=== PATIENT | female | born 1995 | race African-American/Black ===

== ENCOUNTER 2021-02-09 13:17 | Inpatient (IN) | payer BC ==
[2021-02-09] MEDS ORDERED: Oxytocin/0.9 % Sodium Chloride 30 UNIT/500 ML BAG ONE (13:21)
[2021-02-09] MEDS ORDERED: Methylergonovine 0.2 MG/1 ML Amp IM PRN (13:37)
[2021-02-09] MEDS ORDERED: Water For Irrigation,Sterile 1,000 ML Container IRR PRN (13:37)
[2021-02-09] MEDS ORDERED: Sodium Chloride 0.9% 10 ML SDV IV PRN (13:37)
[2021-02-09] MEDS ORDERED: Misoprostol 200 MCG Tab PO PRN (13:37)
[2021-02-09] MEDS ORDERED: Tranexamic Acid 1,000 MG in Sodium Chloride 0.9% 100 ML IV PRN (13:37)
[2021-02-09] MEDS ORDERED: Carboprost Tromethamine 250 MCG/1 ML Amp IM PRN (13:37)
[2021-02-09] MEDS ORDERED: Lidocaine 1% 50 ML MDV INJECT PRN (13:37)
[2021-02-09] MEDS ORDERED: Butorphanol 1 MG/ML SDV IVPUSH PRN (13:37)
[2021-02-09] MEDS ORDERED: Nalbuphine 10 MG/1 ML Vial IVPUSH PRN (13:37)
[2021-02-09] MEDS ORDERED: Sodium Chloride 0.9% 2.5 ML Syringe FLUSH PRN (13:37)
[2021-02-09] MEDS ORDERED: Sodium Chloride 0.9% 10 ML Syringe FLUSH PRN (13:37)
[2021-02-09] MEDS ORDERED: Oxytocin/0.9 % Sodium Chloride 30 UNIT/500 ML BAG IV SCH (13:45)
[2021-02-09] MEDS ORDERED: Lactated Ringers 1,000 ML IV SCH (13:45)
[2021-02-09] MEDS ORDERED: Bisacodyl 10 MG Supp RECTAL PRN (14:10)
[2021-02-09] MEDS ORDERED: Benzocaine/Menthol 20%-0.5% Spray 78 GM Cannister TOP PRN (14:10)
[2021-02-09] MEDS ORDERED: Acetaminophen 500 MG Tab PO PRN (14:10)
[2021-02-09] MEDS ORDERED: Lanolin 100% Cream 7 GM Tube TOP PRN (14:10)
[2021-02-09] MEDS ORDERED: Docusate Sodium 100 MG Cap PO PRN (14:10)
[2021-02-09] MEDS ORDERED: Ibuprofen 400 MG Tab PO PRN (14:10)
[2021-02-09] MEDS ORDERED: Witch Hazel Medicated Pads 40/Jar TOP PRN (14:10)
[2021-02-09] MEDS: Acetaminophen 500 MG Tab PO PRN ×2 (16:40→22:32)
--- NOTE | 2021-02-09 17:48 | PCM.LDHP ---
L&D History of Present Illness - General Date of Service: 02/09/21 Admit Problem/Dx: Patient Status Order with Admit Dx/Problem 02/09/21 13:37 Patient Status [ADT] Routine 02/09/21 14:12 Patient Status [ADT] Routine Admission Diagnosis/Problem Admission Diagnosis/Problem Source of Information: Patient History Limitations: Reports: No Limitations - History of Present Illness Introduction:: 25yo F @ 38w5d GA presenting in labor. Contractions started at 3am and have gotten worse in frequency and intensity. Denies VB or LOF care unremarkable: O pos, Abs screen neg, RI, RPR neg, HepBsAg neg, GBS neg. Pain Score: 5 - Related Data Allergies/Adverse Reactions: Allergies Allergy/AdvReac Type Severity Reaction Status Date / Time No Known Allergies Allergy Verified 02/09/21 13:47 Past Medical History - Past Health History Medical/Surgical History: Denies Medical/Surgical History Social & Family History - Tobacco Use Tobacco Use Status *Q: Never Tobacco User Second Hand Smoke Exposure: No - Caffeine Use Caffeine Use: Reports: None - Recreational Drug Use Recreational Drug Use: No H&P Review of Systems - Review of Systems: Review Of Systems: See Below General: Reports: No Symptoms HEENT: Reports: No Symptoms Pulmonary: Reports: No Symptoms Cardiovascular: Reports: No Symptoms Genitourinary: Reports: No Symptoms Psychiatric: Reports: No Symptoms Neurological: Reports: No Symptoms L&D Exam - Exam Exam: See Below - Vital Signs Weight: 67.132 kg - OB Specific Contraction Intensity: Moderate to Strong Movement: Active Heart Tones: Present Estimated Weight: 6lbs - Delcid Score Delcid Score Cervix Position: Anterior Delcid Score Consistency: Soft Delcid Score Effacement: >80% Delcid Score Dilation: > 5 cm Delcid Score Infant's Station: +1, +2 Delcid Score Total: 13 - Exam General: Alert, Oriented Lungs: Normal Respiratory Effort Cardiovascular: Regular Rhythm Back Exam: Normal Inspection Psychiatric: Alert, Normal Affect, Normal Mood - Patient Data Lab Results Last 24 hrs: Laboratory Results - last 24 hr 02/09/21 02/09/21 02/09/21 Range/Units 13:15 13:30 13:30 WBC 10.58 (4.0-11.0) K/uL RBC 5.40 (4.30-5.90) M/uL Hgb 12.0 (12.0-16.0) g/dL Hct 38.1 (36.0-46.0) % MCV 70.6 L (80.0-98.0) fL MCH 22.2 L (27.0-32.0) pg MCHC 31.5 (31.0-37.0) g/dL RDW Std Deviation 38.6 (28.0-62.0) fl RDW Coeff of Leatha 15 (11.0-15.0) % Plt Count 199 (150-400) K/uL MPV (7.40-12.00) fL Nucleated RBC % 0.0 /100WBC Nucleated RBCs # 0 K/uL SARS-CoV-2 RNA (KD) NEGATIVE (NEGATIVE) Blood Type O POSITIVE Antibody Screen NEGATIVE Result Diagrams: 02/10/21 05:12 - Problem List (1) Term SNOMED Code(s): 99059608 ICD Code: Z34.90 - ENCNTR FOR SUPRVSN OF NORMAL , UNSP, UNSP TRIMESTER Status: Acute Current Visit: Yes Problem List Initiated/Reviewed/Updated: Yes Orders Last 24hrs: Active Orders 24 hr Category Date Time Status Patient Status [ADT] Routine ADT 02/09/21 14:12 Active Heart Tones [RC] CONTINUOUS Care 02/09/21 13:37 Active Non Stress Test [RC] PER UNIT ROUTINE Care 02/09/21 13:37 Active May Shower [RC] ASDIRECTED Care 02/09/21 13:37 Active May Shower [RC] ASDIRECTED Care 02/09/21 14:12 Active Notify Provider [RC] PRN Care 02/09/21 13:37 Active Up ad Mandy [RC] ASDIRECTED Care 02/09/21 13:37 Active Up ad Mandy [RC] ASDIRECTED Care 02/09/21 14:12 Active Vaginal Exam [RC] PRN Care 02/09/21 13:37 Active Vital Signs [RC] PER UNIT ROUTINE Care 02/09/21 13:37 Active Vital Signs [RC] PER UNIT ROUTINE Care 02/09/21 14:12 Active Regular Diet [DIET] Diet 02/09/21 Dinner Active HEMOGLOBIN/HEMATOCRIT,HH [HEME] Timed Lab 02/10/21 05:11 Ordered RPR (SYPHILIS SERO) W/ RFLX [REF] Routine Lab 02/09/21 13:30 Received Acetaminophen [Tylenol Extra Strength] Med 02/09/21 14:10 Active 1,000 mg PO Q4H PRN Acetaminophen [Tylenol Extra Strength] Med 02/09/21 14:10 Active 500 mg PO Q4H PRN Benzocaine/Menthol [Dermoplast Pain Relief 20%-0.5% Med 02/09/21 14:10 Active [place]] 78 gm TOP ASDIRECTED PRN Butorphanol [Stadol] Med 02/09/21 13:37 Active 1 mg IVPUSH Q1H PRN Carboprost Tromethamine [Hemabate DS] Med 02/09/21 13:37 Active 250 mcg IM ASDIRECTED PRN Docusate Sodium [Colace] Med 02/09/21 14:10 Active 100 mg PO BID PRN Ibuprofen [Motrin] Med 02/09/21 14:10 Active 400 mg PO Q4H PRN Ibuprofen [Motrin] Med 02/09/21 14:10 Active 800 mg PO Q6H PRN Lactated Ringers [Ringers, Lactated] 1,000 ml Med 02/09/21 13:45 Active IV ASDIRECTED Lanolin [Lansinoh HPA] Med 02/09/21 14:10 Active See Dose Instructions TOP ASDIRECTED PRN Lidocaine 1% [Xylocaine 1%] Med 02/09/21 13:37 Active 50 ml INJECT ONETIME PRN Methylergonovine [Methergine] Med 02/09/21 13:37 Active 0.2 mg IM ASDIRECTED PRN Nalbuphine [Nubain] Med 02/09/21 13:37 Active 10 mg IVPUSH Q1H PRN Oxytocin/0.9 % Sodium Chloride [Oxytocin 30 Unit/500 ML Med 02/09/21 13:45 Active -NS] 30 unit in 500 ml IV TITRATE Sodium Chloride 0.9% [Normal Saline] Med 02/09/21 13:37 Active 10 ml IV ASDIRECTED PRN Sodium Chloride 0.9% [Saline Flush] Med 02/09/21 13:37 Active 10 ml FLUSH ASDIRECTED PRN Sodium Chloride 0.9% [Saline Flush] Med 02/09/21 13:37 Active 2.5 ml FLUSH ASDIRECTED PRN Tranexamic Acid [Cyklokapron] 1,000 mg Med 02/09/21 13:37 Active Sodium Chloride 0.9% [Normal Saline] 100 ml IV ONETIME Water For Irrigation,Sterile [Sterile Water for Med 02/09/21 13:37 Active Irrigation] 1,000 ml IRR ASDIRECTED PRN bisacodyL [Dulcolax] Med 02/09/21 14:10 Active 10 mg RECTAL ONETIME PRN miSOPROStoL [Cytotec] Med 02/09/21 13:37 Active 200 mcg PO ONETIME PRN witch Nan [Tucks] Med 02/09/21 14:10 Active 1 pad TOP ASDIRECTED PRN Assess Lochia [WOMSER] Per Unit Routine Ot 02/09/21 14:12 Ordered Assess Uterine Involution [WOMSER] Per Unit Routine Oth 02/09/21 14:12 Ordered Scalp Electrode [WOMSER] Per Unit Routine Oth 02/09/21 13:37 Ordered Peripheral IV Discontinue [OM.PC] Routine Oth 02/09/21 14:12 Ordered Peripheral IV Insertion Adult [OM.PC] Routine Oth 02/09/21 13:37 Ordered Resuscitation Status Routine Resus Stat 02/09/21 13:37 Ordered Medication Orders Acetaminophen (Acetaminophen 500 Mg Tab) 500 mg PO Q4H PRN PRN Reason: Pain Acetaminophen (Acetaminophen 500 Mg Tab) 1,000 mg PO Q4H PRN PRN Reason: Pain Last Admin: 02/09/21 16:40 Dose: 1,000 mg Documented by: OVERBAR Benzocaine/Menthol (Benzocaine/Menthol 20%-0.5% [place] 78 Gm Cannister) 78 gm TOP ASDIRECTED PRN PRN Reason: Perineal Comfort Measure Bisacodyl (Bisacodyl 10 Mg Supp) 10 mg RECTAL ONETIME PRN PRN Reason: Constipation Butorphanol Tartrate (Butorphanol 1 Mg/Ml Sdv) 1 mg IVPUSH Q1H PRN PRN Reason: Pain Carboprost Tromethamine (Carboprost Tromethamine 250 Mcg/1 Ml Amp) 250 mcg IM ASDIRECTED PRN PRN Reason: Post Hemorrhage Docusate Sodium (Docusate Sodium 100 Mg Cap) 100 mg PO BID PRN PRN Reason: Constipation Emollient Ointment (Lanolin 100% Cream 7 Gm Tube) 0 gm TOP ASDIRECTED PRN PRN Reason: Sore Nipples Lactated Ringer's (Ringers, Lactated) 1,000 mls @ 150 mls/hr IV ASDIRECTED [facility] Last Admin: 02/09/21 13:17 Dose: 999 mls/hr Documented by: OVERBAR Oxytocin/Sodium Chloride (Oxytocin 30 Unit/500 Ml-Ns) 30 unit in 500 mls @ 500 mls/hr IV TITRATE [facility] Last Admin: 02/09/21 13:51 Dose: 500 mls/hr Documented by: OVERBAR Tranexamic Acid 1,000 mg/ (Sodium Chloride) 110 mls @ 660 mls/hr IV ONETIME PRN PRN Reason: Bleeding Ibuprofen (Ibuprofen 400 Mg Tab) 400 mg PO Q4H PRN PRN Reason: Pain Ibuprofen (Ibuprofen 800 Mg Tab) 800 mg PO Q6H PRN PRN Reason: Pain Lidocaine HCl (Lidocaine 1% 50 Ml Mdv) 50 ml INJECT ONETIME PRN PRN Reason: Laceration repair Methylergonovine Maleate (Methylergonovine 0.2 Mg/1 Ml Amp) 0.2 mg IM ASDIRECTED PRN PRN Reason: Post Hemorrhage Misoprostol (Misoprostol 200 Mcg Tab) 200 mcg PO ONETIME PRN PRN Reason: Post Hemorrhage Nalbuphine HCl (Nalbuphine 10 Mg/1 Ml Vial) 10 mg IVPUSH Q1H PRN PRN Reason: Pain (severe 7-10) Sodium Chloride (Sodium Chloride 0.9% 10 Ml Syringe) 10 ml FLUSH ASDIRECTED PRN PRN Reason: Keep Vein Open Sodium Chloride (Sodium Chloride 0.9% 2.5 Ml Syringe) 2.5 ml FLUSH ASDIRECTED PRN PRN Reason: Keep Vein Open Sodium Chloride (Sodium Chloride 0.9% 10 Ml Sdv) 10 ml IV ASDIRECTED PRN PRN Reason: IV Use Sterile Water (Water For Irrigation,Sterile 1,000 Ml Container) 1,000 ml IRR ASDIRECTED PRN PRN Reason: delivery Witch Nan (Witch Nan Medicated Pads 40/Jar) 1 pad TOP ASDIRECTED PRN PRN Reason: comfort care Assessment/Plan Comment:: Patient will be admitted to L&D. Routine admission labs. Expectant management.
--- NOTE | 2021-02-09 17:49 | PCM.DEL ---
L & D Note - General Info Date of Service: 02/09/21 Mother's Due Date: 02/18/21 - Delivery Note Labor: Spontaneous Delivery Outcome: Livebirth Infant Delivery Method: Spontaneous Vaginal Delivery-Single Nuchal Cord: None Anesthesia Type: None Amniotic Fluid Description: Clear Episiotomy Type: None Laceration: None Placenta: Intact Cord: 3 Vessels Estimated Blood Loss: 100 Resuscitation Needed: No [place]: Stimulated, Warmed Score 1 min: 8 Score 5 min: 9 Delivery Comments (Free Text/Narrative):: 25yo G2 now P2002 S/P uncomplicated care ucomplicated. Normal spontaneous vaginal delivery, of live female , position over intact perineum without epidural anesthesia. terminal meconium but no nuchal cord. Spontaneous delivery of placenta with 3-vessel cord. No laceration, minimal blood loss. All sponges and instrument counts correct at the end of the procedure. Delivery details: Female infant Weight: 6'14" : 8/9 EBL 100cc - General Info Date of Service: 02/09/21 Admission Dx/Problem (Free Text): Patient Status Order with Admit Dx/Problem 02/09/21 13:37 Patient Status [ADT] Routine 02/09/21 14:12 Patient Status [ADT] Routine Admission Diagnosis/Problem Admission Diagnosis/Problem Subjective Update: 25yo G2 now P2 s/p uncomplicated . Minimal blood loss. Mom and baby are doing well Functional Status: Reports: Pain Controlled - Review of Systems General: Reports: No Symptoms HEENT: Reports: No Symptoms Pulmonary: Reports: No Symptoms Cardiovascular: Reports: No Symptoms Gastrointestinal: Reports: No Symptoms Genitourinary: Reports: No Symptoms Musculoskeletal: Reports: No Symptoms Skin: Reports: No Symptoms Neurological: Reports: No Symptoms Psychiatric: Reports: No Symptoms - Patient Data Weight - Most Recent: 67.132 kg Lab Results Last 24 Hours: Laboratory Results - last 24 hr 02/09/21 02/09/21 02/09/21 Range/Units 13:15 13:30 13:30 WBC 10.58 (4.0-11.0) K/uL RBC 5.40 (4.30-5.90) M/uL Hgb 12.0 (12.0-16.0) g/dL Hct 38.1 (36.0-46.0) % MCV 70.6 L (80.0-98.0) fL MCH 22.2 L (27.0-32.0) pg MCHC 31.5 (31.0-37.0) g/dL RDW Std Deviation 38.6 (28.0-62.0) fl RDW Coeff of [place] 15 (11.0-15.0) % Plt Count 199 (150-400) K/uL MPV (7.40-12.00) fL Nucleated RBC % 0.0 /100WBC Nucleated RBCs # 0 K/uL SARS-CoV-2 RNA (KD) NEGATIVE (NEGATIVE) Blood Type O POSITIVE Antibody Screen NEGATIVE Med Orders - Current: Current Medications Acetaminophen (Acetaminophen 500 Mg Tab) 500 mg PO Q4H PRN PRN Reason: Pain Acetaminophen (Acetaminophen 500 Mg Tab) 1,000 mg PO Q4H PRN PRN Reason: Pain Last Admin: 02/09/21 16:40 Dose: 1,000 mg Documented by: Benzocaine/Menthol (Benzocaine/Menthol 20%-0.5% [place] 78 Gm Cannister) 78 gm TOP ASDIRECTED PRN PRN Reason: Perineal Comfort Measure Bisacodyl (Bisacodyl 10 Mg Supp) 10 mg RECTAL ONETIME PRN PRN Reason: Constipation Butorphanol Tartrate (Butorphanol 1 Mg/Ml Sdv) 1 mg IVPUSH Q1H PRN PRN Reason: Pain Carboprost Tromethamine (Carboprost Tromethamine 250 Mcg/1 Ml Amp) 250 mcg IM ASDIRECTED PRN PRN Reason: Post Hemorrhage Docusate Sodium (Docusate Sodium 100 Mg Cap) 100 mg PO BID PRN PRN Reason: Constipation Emollient Ointment (Lanolin 100% Cream 7 Gm Tube) 0 gm TOP ASDIRECTED PRN PRN Reason: Sore Nipples Lactated Ringer's (Ringers, Lactated) 1,000 mls @ 150 mls/hr IV ASDIRECTED [facility] Last Admin: 02/09/21 13:17 Dose: 999 mls/hr Documented by: Oxytocin/Sodium Chloride (Oxytocin 30 Unit/500 Ml-Ns) 30 unit in 500 mls @ 500 mls/hr IV TITRATE [facility] Last Admin: 02/09/21 13:51 Dose: 500 mls/hr Documented by: Tranexamic Acid 1,000 mg/ (Sodium Chloride) 110 mls @ 660 mls/hr IV ONETIME PRN PRN Reason: Bleeding Ibuprofen (Ibuprofen 400 Mg Tab) 400 mg PO Q4H PRN PRN Reason: Pain Ibuprofen (Ibuprofen 800 Mg Tab) 800 mg PO Q6H PRN PRN Reason: Pain Lidocaine HCl (Lidocaine 1% 50 Ml Mdv) 50 ml INJECT ONETIME PRN PRN Reason: Laceration repair Methylergonovine Maleate (Methylergonovine 0.2 Mg/1 Ml Amp) 0.2 mg IM ASDIRECTED PRN PRN Reason: Post Hemorrhage Misoprostol (Misoprostol 200 Mcg Tab) 200 mcg PO ONETIME PRN PRN Reason: Post Hemorrhage Nalbuphine HCl (Nalbuphine 10 Mg/1 Ml Vial) 10 mg IVPUSH Q1H PRN PRN Reason: Pain (severe 7-10) Sodium Chloride (Sodium Chloride 0.9% 10 Ml Syringe) 10 ml FLUSH ASDIRECTED PRN PRN Reason: Keep Vein Open Sodium Chloride (Sodium Chloride 0.9% 2.5 Ml Syringe) 2.5 ml FLUSH ASDIRECTED PRN PRN Reason: Keep Vein Open Sodium Chloride (Sodium Chloride 0.9% 10 Ml Sdv) 10 ml IV ASDIRECTED PRN PRN Reason: IV Use Sterile Water (Water For Irrigation,Sterile 1,000 Ml Container) 1,000 ml IRR ASDIRECTED PRN PRN Reason: delivery Witch Nan (Witch Nan Medicated Pads 40/Jar) 1 pad TOP ASDIRECTED PRN PRN Reason: comfort care Discontinued Medications Oxytocin/Sodium Chloride (Oxytocin 30 Unit/500 Ml-Ns) Confirm Administered Dose 30 unit in 500 mls @ as directed .ROUTE .STK-MED ONE Stop: 02/09/21 13:22 - Exam General: Alert, Oriented Lungs: Normal Respiratory Effort Cardiovascular: Regular Rate GI/Abdominal Exam: Soft, Non-Tender Back Exam: Normal Inspection Extremities: Normal Inspection Neurological: No New Focal Deficit Psy/Mental Status: Alert, Normal Affect, Normal Mood - Problem List & Annotations (1) Term SNOMED Code(s): 11353105 Code(s): Z34.90 - ENCNTR FOR SUPRVSN OF NORMAL , UNSP, UNSP TRIMESTER Status: Acute Current Visit: Yes - Problem List Review Problem List Initiated/Reviewed/Updated: Yes - My Orders Last 24 Hours: My Active Orders 02/09/21 13:30 RPR (SYPHILIS SERO) W/ RFLX [REF] Routine 02/09/21 13:37 Heart Tones [RC] CONTINUOUS Non Stress Test [RC] PER UNIT ROUTINE May Shower [RC] ASDIRECTED Notify Provider [RC] PRN Up ad Mandy [RC] ASDIRECTED Vaginal Exam [RC] PRN Vital Signs [RC] PER UNIT ROUTINE Butorphanol [Stadol] 1 mg IVPUSH Q1H PRN Carboprost Tromethamine [Hemabate DS] 250 mcg IM ASDIRECTED PRN Lidocaine 1% [Xylocaine 1%] 50 ml INJECT ONETIME PRN Methylergonovine [Methergine] 0.2 mg IM ASDIRECTED PRN Nalbuphine [Nubain] 10 mg IVPUSH Q1H PRN Sodium Chloride 0.9% [Normal Saline] 10 ml IV ASDIRECTED PRN Sodium Chloride 0.9% [Saline Flush] 10 ml FLUSH ASDIRECTED PRN Sodium Chloride 0.9% [Saline Flush] 2.5 ml FLUSH ASDIRECTED PRN Tranexamic Acid [Cyklokapron] 1,000 mg Sodium Chloride 0.9% [Normal Saline] 100 ml IV ONETIME Water For Irrigation,Sterile [Sterile Water for Irrigation] 1,000 ml IRR ASDIRECTED PRN miSOPROStoL [Cytotec] 200 mcg PO ONETIME PRN Scalp Electrode [WOMSER] Per Unit Routine Peripheral IV Insertion Adult [OM.PC] Routine Resuscitation Status Routine 02/09/21 13:45 Lactated Ringers [Ringers, Lactated] 1,000 ml IV ASDIRECTED Oxytocin/0.9 % Sodium Chloride [Oxytocin 30 Unit/500 ML-NS] 30 unit in 500 ml IV TITRATE 02/09/21 14:10 Acetaminophen [Tylenol Extra Strength] 1,000 mg PO Q4H PRN Acetaminophen [Tylenol Extra Strength] 500 mg PO Q4H PRN Benzocaine/Menthol [Dermoplast Pain Relief 20%-0.5% [place]] 78 gm TOP ASDIRECTED PRN Docusate Sodium [Colace] 100 mg PO BID PRN Ibuprofen [Motrin] 400 mg PO Q4H PRN Ibuprofen [Motrin] 800 mg PO Q6H PRN Lanolin [Lansinoh HPA] See Dose Instructions TOP ASDIRECTED PRN bisacodyL [Dulcolax] 10 mg RECTAL ONETIME PRN witch Nan [Tucks] 1 pad TOP ASDIRECTED PRN 02/09/21 14:12 Patient Status [ADT] Routine May Shower [RC] ASDIRECTED Up ad Mandy [RC] ASDIRECTED Vital Signs [RC] PER UNIT ROUTINE Assess Lochia [WOMSER] Per Unit Routine Assess Uterine Involution [WOMSER] Per Unit Routine Peripheral IV Discontinue [OM.PC] Routine 02/09/21 Dinner Regular Diet [DIET] 02/10/21 05:11 HEMOGLOBIN/HEMATOCRIT,HH [HEME] Timed - Assessment Assessment:: Uncomplicated . Baby by mother's side, both doing well. - Plan Plan:: Admit to . Routine care
[2021-02-10] MEDS: Ibuprofen 800 MG Tab PO PRN ×2 (05:35→19:25)
--- NOTE | 2021-02-10 18:06 | PCM.PNPP ---
- General Info Date of Service: 02/10/21 Admission Dx/Problem (Free Text): Patient Status Order with Admit Dx/Problem 02/09/21 13:37 Patient Status [ADT] Routine 02/09/21 14:12 Patient Status [ADT] Routine Admission Diagnosis/Problem Admission Diagnosis/Problem Subjective Update: 25yo G2 now P2 s/p uncomplicated . Minimal blood loss. Mom is doing well. Baby under light treatment for elevated bili Functional Status: Reports: Pain Controlled - Review of Systems General: Reports: No Symptoms HEENT: Reports: No Symptoms Pulmonary: Reports: No Symptoms Cardiovascular: Reports: No Symptoms Gastrointestinal: Reports: No Symptoms Genitourinary: Reports: No Symptoms Musculoskeletal: Reports: No Symptoms Skin: Reports: No Symptoms Neurological: Reports: No Symptoms Psychiatric: Reports: No Symptoms - General Info Date of Service: 02/10/21 - Patient Data Vital Signs - Most Recent: Last Vital Signs Temp 98.4 F 02/10/21 16:53 Pulse 91 02/10/21 16:53 Resp 16 02/10/21 16:53 BP 116/80 02/10/21 16:53 Pulse Ox 100 02/10/21 16:53 Weight - Most Recent: 67.132 kg Lab Results - Last 24 Hours: Laboratory Results - last 24 hr 02/10/21 Range/Units 05:12 Hgb 10.6 L (12.0-16.0) g/dL Hct 33.9 L (36.0-46.0) % Med Orders - Current: Current Medications Acetaminophen (Acetaminophen 500 Mg Tab) 500 mg PO Q4H PRN PRN Reason: Pain Acetaminophen (Acetaminophen 500 Mg Tab) 1,000 mg PO Q4H PRN PRN Reason: Pain Last Admin: 02/09/21 22:32 Dose: 1,000 mg Documented by: Benzocaine/Menthol (Benzocaine/Menthol 20%-0.5% [place] 78 Gm Cannister) 78 gm TOP ASDIRECTED PRN PRN Reason: Perineal Comfort Measure Bisacodyl (Bisacodyl 10 Mg Supp) 10 mg RECTAL ONETIME PRN PRN Reason: Constipation Butorphanol Tartrate (Butorphanol 1 Mg/Ml Sdv) 1 mg IVPUSH Q1H PRN PRN Reason: Pain Carboprost Tromethamine (Carboprost Tromethamine 250 Mcg/1 Ml Amp) 250 mcg IM ASDIRECTED PRN PRN Reason: Post Hemorrhage Docusate Sodium (Docusate Sodium 100 Mg Cap) 100 mg PO BID PRN PRN Reason: Constipation Emollient Ointment (Lanolin 100% Cream 7 Gm Tube) 0 gm TOP ASDIRECTED PRN PRN Reason: Sore Nipples Lactated Ringer's (Ringers, Lactated) 1,000 mls @ 150 mls/hr IV ASDIRECTED [facility] Last Admin: 02/09/21 13:17 Dose: 999 mls/hr Documented by: Oxytocin/Sodium Chloride (Oxytocin 30 Unit/500 Ml-Ns) 30 unit in 500 mls @ 500 mls/hr IV TITRATE [facility] Last Admin: 02/09/21 13:51 Dose: 500 mls/hr Documented by: Tranexamic Acid 1,000 mg/ (Sodium Chloride) 110 mls @ 660 mls/hr IV ONETIME PRN PRN Reason: Bleeding Ibuprofen (Ibuprofen 400 Mg Tab) 400 mg PO Q4H PRN PRN Reason: Pain Ibuprofen (Ibuprofen 800 Mg Tab) 800 mg PO Q6H PRN PRN Reason: Pain Last Admin: 02/10/21 05:35 Dose: 800 mg Documented by: Lidocaine HCl (Lidocaine 1% 50 Ml Mdv) 50 ml INJECT ONETIME PRN PRN Reason: Laceration repair Methylergonovine Maleate (Methylergonovine 0.2 Mg/1 Ml Amp) 0.2 mg IM ASDIRECTED PRN PRN Reason: Post Hemorrhage Misoprostol (Misoprostol 200 Mcg Tab) 200 mcg PO ONETIME PRN PRN Reason: Post Hemorrhage Nalbuphine HCl (Nalbuphine 10 Mg/1 Ml Vial) 10 mg IVPUSH Q1H PRN PRN Reason: Pain (severe 7-10) Sodium Chloride (Sodium Chloride 0.9% 10 Ml Syringe) 10 ml FLUSH ASDIRECTED PRN PRN Reason: Keep Vein Open Sodium Chloride (Sodium Chloride 0.9% 2.5 Ml Syringe) 2.5 ml FLUSH ASDIRECTED PRN PRN Reason: Keep Vein Open Sodium Chloride (Sodium Chloride 0.9% 10 Ml Sdv) 10 ml IV ASDIRECTED PRN PRN Reason: IV Use Sterile Water (Water For Irrigation,Sterile 1,000 Ml Container) 1,000 ml IRR ASDIRECTED PRN PRN Reason: delivery Witch Nan (Witch Nan Medicated Pads 40/Jar) 1 pad TOP ASDIRECTED PRN PRN Reason: comfort care Discontinued Medications Oxytocin/Sodium Chloride (Oxytocin 30 Unit/500 Ml-Ns) Confirm Administered Dose 30 unit in 500 mls @ as directed .ROUTE .STK-MED ONE Stop: 02/09/21 13:22 Last Admin: 02/10/21 07:18 Dose: Not Given Documented by: - Infant Interaction Infant Disposition, : to Nursery Interaction: To Nursery to Visit Support Person: - Recovery Exam Fundal Tone: Firm Fundal Level: 2 Fingerbreadths Below Umbilicus Fundal Placement: Midline Lochia Amount: Scant Lochia Color: Rubra/Red Perineum Description: Intact, Minimal Bruising/Swelling Episiotomy/Laceration: None Bladder Status: Voiding Urinary Elimination: Voided - Exam General: Alert, Oriented Lungs: Normal Respiratory Effort GI/Abdominal Exam: Soft, Non-Tender Psy/Mental Status: Alert, Normal Affect, Normal Mood - Problem List & Annotations (1) Term SNOMED Code(s): 37715706 Code(s): Z34.90 - ENCNTR FOR SUPRVSN OF NORMAL , UNSP, UNSP TRIMESTER Status: Acute Current Visit: Yes - Problem List Review Problem List Initiated/Reviewed/Updated: Yes - Assessment Assessment:: Uncomplicated . Mom doing well. Baby receiving light therapy for elevated bili - Plan Plan:: Routine care
--- NOTE | 2021-02-10 21:59 | US ---
INDICATION: Pelvic pain, status post vaginal delivery yesterday TECHNIQUE: Ultrasound pelvis transabdominal. Real-time sonographic images with spectral and color Doppler imaging of the ovaries were obtained. COMPARISON: None FINDINGS: Uterus: 15.8 x 8.5 x 8.9 cm. Normal echotexture of the myometrium. No masses. Endometrium: Transvaginal imaging was performed to better evaluate the endometrium. 1.9 cm in maximum thickness in the lower uterine segment. The endometrium is heterogeneous in this location. Right ovary: 2.0 x 2.8 x 1.4 cm. No ovarian or adnexal masses. Blood flow is seen in the right ovary. Left ovary: 2.6 x 3.3 x 1.8 cm. No ovarian or adnexal masses. Blood flow seen in the left ovary. Cul-de-sac: No significant free fluid. IMPRESSION: Heterogeneous, thickened endometrium in the lower uterine segment. Although this may be due to recent state, retained products of conception cannot be entirely excluded. Recommend gynecology consultation. Enlarged uterus consistent with state. Dictated by Cindy Golden MD @ Feb 10 2021 9:53PM Signed by Dr. Cindy Golden @ Feb 10 2021 9:57PM
[2021-02-10] MEDS ORDERED: Acetaminophen/oxyCODONE 325-5 MG Tab PO PRN (22:17)
--- NOTE | 2021-02-11 17:01 | PCM.DCSUM1 ---
Discharge Summary - Hospital Course Free Text/Narrative:: 25yo G2 now P2 s/p uncomplicated at 38w5d. Patient presented in labor and found to be 8cm dilated. She SROM and delivered shortly after she arrived to L&D. Baby girl apgars 8/9. Baby was jaundiced and required UV light therapy. course was otherwise unremarkable. Diagnosis: Stroke: No - Discharge Data Discharge Date: 02/11/21 Discharge Disposition: Home, Self-Care 01 Condition: Good - Referral to Home Health Primary Care Physician: PCP None - Discharge Diagnosis/Problem(s) (1) Term SNOMED Code(s): 08930627 ICD Code: Z34.90 - ENCNTR FOR SUPRVSN OF NORMAL , UNSP, UNSP TRIMESTER Status: Acute - Patient Instructions Diet: Regular Diet as Tolerated Activity: As Tolerated - Discharge Plan *PRESCRIPTION DRUG MONITORING PROGRAM REVIEWED*: Not Applicable *COPY OF PRESCRIPTION DRUG MONITORING REPORT IN PATIENT YON: Not Applicable Patient Handouts: Baby Blues, Care After Vaginal Delivery Referrals: Ritu Caruso MD [Physician] - 03/24/21 8:30 am - Discharge Summary/Plan Comment DC Time >30 min.: Yes - General Info Date of Service: 02/11/21 Admission Dx/Problem (Free Text: Patient Status Order with Admit Dx/Problem 02/09/21 13:37 Patient Status [ADT] Routine 02/09/21 14:12 Patient Status [ADT] Routine Admission Diagnosis/Problem Admission Diagnosis/Problem Subjective Update: 25yo G2 now P2 s/p uncomplicated . Minimal blood loss. Mom is doing well. Baby with elevated bili and was treated with UV light Functional Status: Reports: Pain Controlled - Review of Systems General: Reports: No Symptoms HEENT: Reports: No Symptoms Pulmonary: Reports: No Symptoms Cardiovascular: Reports: No Symptoms Gastrointestinal: Reports: No Symptoms Genitourinary: Reports: No Symptoms Musculoskeletal: Reports: No Symptoms Skin: Reports: No Symptoms - Patient Data Vitals - Most Recent: Last Vital Signs Temp 97.8 F 02/11/21 05:10 Pulse 68 02/11/21 05:10 Resp 16 02/11/21 05:10 BP 128/76 02/11/21 05:10 Pulse Ox 97 02/11/21 05:10 Weight - Most Recent: 67.132 kg Lab Results - Last 24 hrs: Laboratory Results - last 24 hr 02/09/21 Range/Units 13:30 RPR Non-Reac (Non-Reac) Med Orders - Current: Current Medications Discontinued Medications Acetaminophen (Acetaminophen 500 Mg Tab) 500 mg PO Q4H PRN PRN Reason: Pain Acetaminophen (Acetaminophen 500 Mg Tab) 1,000 mg PO Q4H PRN PRN Reason: Pain Last Admin: 02/09/21 22:32 Dose: 1,000 mg Documented by: Benzocaine/Menthol (Benzocaine/Menthol 20%-0.5% [place] 78 Gm Cannister) 78 gm TOP ASDIRECTED PRN PRN Reason: Perineal Comfort Measure Bisacodyl (Bisacodyl 10 Mg Supp) 10 mg RECTAL ONETIME PRN PRN Reason: Constipation Butorphanol Tartrate (Butorphanol 1 Mg/Ml Sdv) 1 mg IVPUSH Q1H PRN PRN Reason: Pain Carboprost Tromethamine (Carboprost Tromethamine 250 Mcg/1 Ml Amp) 250 mcg IM ASDIRECTED PRN PRN Reason: Post Hemorrhage Docusate Sodium (Docusate Sodium 100 Mg Cap) 100 mg PO BID PRN PRN Reason: Constipation Emollient Ointment (Lanolin 100% Cream 7 Gm Tube) 0 gm TOP ASDIRECTED PRN PRN Reason: Sore Nipples Last Admin: 02/11/21 08:42 Dose: 7 gm Documented by: Oxytocin/Sodium Chloride (Oxytocin 30 Unit/500 Ml-Ns) Confirm Administered Dose 30 unit in 500 mls @ as directed .ROUTE .STK-MED ONE Stop: 02/09/21 13:22 Last Admin: 02/10/21 07:18 Dose: Not Given Documented by: Lactated Ringer's (Ringers, Lactated) 1,000 mls @ 150 mls/hr IV ASDIRECTED MICHAEL Last Admin: 02/09/21 13:17 Dose: 999 mls/hr Documented by: Oxytocin/Sodium Chloride (Oxytocin 30 Unit/500 Ml-Ns) 30 unit in 500 mls @ 500 mls/hr IV TITRATE MICHAEL Last Admin: 02/09/21 13:51 Dose: 500 mls/hr Documented by: Tranexamic Acid 1,000 mg/ (Sodium Chloride) 110 mls @ 660 mls/hr IV ONETIME PRN PRN Reason: Bleeding Ibuprofen (Ibuprofen 400 Mg Tab) 400 mg PO Q4H PRN PRN Reason: Pain Ibuprofen (Ibuprofen 800 Mg Tab) 800 mg PO Q6H PRN PRN Reason: Pain Last Admin: 02/10/21 19:25 Dose: 800 mg Documented by: Lidocaine HCl (Lidocaine 1% 50 Ml Mdv) 50 ml INJECT ONETIME PRN PRN Reason: Laceration repair Methylergonovine Maleate (Methylergonovine 0.2 Mg/1 Ml Amp) 0.2 mg IM ASDIRECTED PRN PRN Reason: Post Hemorrhage Misoprostol (Misoprostol 200 Mcg Tab) 200 mcg PO ONETIME PRN PRN Reason: Post Hemorrhage Nalbuphine HCl (Nalbuphine 10 Mg/1 Ml Vial) 10 mg IVPUSH Q1H PRN PRN Reason: Pain (severe 7-10) Oxycodone/Acetaminophen (Acetaminophen/Oxycodone 325-5 Mg Tab) 2 tab PO ONETIME PRN PRN Reason: pain Last Admin: 02/11/21 05:43 Dose: 1 tab Documented by: Sodium Chloride (Sodium Chloride 0.9% 10 Ml Syringe) 10 ml FLUSH ASDIRECTED PRN PRN Reason: Keep Vein Open Sodium Chloride (Sodium Chloride 0.9% 2.5 Ml Syringe) 2.5 ml FLUSH ASDIRECTED PRN PRN Reason: Keep Vein Open Sodium Chloride (Sodium Chloride 0.9% 10 Ml Sdv) 10 ml IV ASDIRECTED PRN PRN Reason: IV Use Sterile Water (Water For Irrigation,Sterile 1,000 Ml Container) 1,000 ml IRR ASDIRECTED PRN PRN Reason: delivery Witch Nan (Witch Nan Medicated Pads 40/Jar) 1 pad TOP ASDIRECTED PRN PRN Reason: comfort care - Exam General: Reports: Alert, Oriented Lungs: Reports: Normal Respiratory Effort Cardiovascular: Reports: Regular Rate GI/Abdominal Exam: Soft, Non-Tender Extremities: Normal Inspection Psy/Mental Status: Reports: Alert, Normal Affect
== END 2021-02-11 13:20 | disposition home or self-care (01) | DRG 560 ==
LOC: MW.OBCHECK 13:17 → MW.OB 13:37 → OBSVTOIN 13:51 → MW.OB 18:40
PROVIDERS: ADMIT Obstetrics & Gynecology Obstetrics; ATTEND Obstetrics & Gynecology Obstetrics
PROC: 10E0XZZ Delivery of Products of Conception, External Approach (ICD-10-PCS; principal; 2021-02-09)
DX: O62.3 Precipitate labor (principal); O77.0 Labor and delivery complicated by meconium in amniotic fluid; Z3A.38 38 weeks gestation of pregnancy; Z37.0 Single live birth; Z20.822 Contact with and (suspected) exposure to COVID-19
CPT/HCPCS: 36415; 59025; 59409; 76857; 76857-26; 85014; 85018; 85027; 86592; 86850; 86900; 86901; A9270-GY; J2590; J7120; U0002

== ENCOUNTER 2021-08-12 14:08 | Emergency (ER) | payer OTHER, BC ==
--- NOTE | 2021-08-12 15:52 | EDM.PDOC ---
ED HPI GENERAL MEDICAL PROBLEM - General Chief Complaint: Lower Extremity Injury/Pain Stated Complaint: WORKMANS COMP/1ST REPORT OF INJURY Time Seen by Provider: 08/12/21 15:37 - History of Present Illness INITIAL COMMENTS - FREE TEXT/NARRATIVE: History of present illness: [] The patient twisted her knee yesterday and it gave out first it locked and she fell. She has severe pain since. It is painful to walk on it. Is painful to move it. The patient has no other injury. She had no loss of consciousness. Review of systems: As per history of present illness and below otherwise all systems reviewed and negative. Past medical history: As per history of present illness and as reviewed below otherwise noncontributory. Surgical history: As per history of present illness and as reviewed below otherwise noncontributo ry. Social history: No reported history of drug or alcohol abuse. Family history: As per history of present illness and as reviewed below otherwise noncontributory. Physical exam: Constitutional - well developed, well-nourished and in no acute distress HEENT - normocephalic, no evidence of trauma - external nose and mouth normal - no mass in neck and no JVD - mucosae moist EYES - full EOM, PERRL, no icterus - no evidence of inflammation, injection, or drainage Respiratory - no respiratory distress, equal bilateral expansion, lungs clear to auscultation and no abnormal lung sounds Musculoskeletal tenderness lateral and medial anterior knee on the right. After x-ray the varus and valgus stress as well as AP drawer signs were negative for instability. No gross deformity of long bones or joints - no tenderness, swelling or edema Neurologic - Alert and oriented times four - CN II-XII grossly intact - motor sensory and coordination symmetrically normal Psychiatric - appropriate mood and affect with normal thought content Hematologic - No petechiae or purpura - mucosa appropriate color and sclera not pale - normal nail bed color and refill Integument - no rash or evidence of trauma - normal turgor Diagnostics: [] Therapeutics: [] Impression: [] Plan: [] Definitive disposition and diagnosis as appropriate pending reevaluation and review of above. Right Knee Pain Score (Numeric/FACES): 8 - Related Data Allergies Allergy/AdvReac Type Severity Reaction Status Date / Time No Known Allergies Allergy Verified 08/12/21 14:41 Home Meds: Home Meds . [No Known Home Meds] 08/12/21 [History] Past Medical History - Past Health History Medical/Surgical History: Denies Medical/Surgical History - Infectious Disease History Infectious Disease History: Reports: None Social & Family History - Family History Family Medical History: No Pertinent Family History - Tobacco Use Tobacco Use Status *Q: Never Tobacco User - Caffeine Use Caffeine Use: Reports: None - Recreational Drug Use Recreational Drug Use: No Review of Systems - Review of Systems Review Of Systems: Comprehensive ROS is negative, except as noted in HPI. ED EXAM, GENERAL - Physical Exam Exam: See Below Free Text/Narrative:: My physical exam is in the HPI Course - Vital Signs Text/Narrative:: Distal neurovascular integrity verified after placement of the immobilizer Last Recorded V/S: Last Vital Signs Temp 36.8 C 08/12/21 14:42 Pulse 68 08/12/21 14:42 Resp 17 08/12/21 14:42 BP 117/72 08/12/21 14:42 Pulse Ox 100 08/12/21 14:42 - Orders/Labs/Meds Orders: Active Orders 24 hr Category Date Time Status Knee 3V Rt [CR] Stat Exams 08/12/21 14:56 Taken DME for Discharge [COMM] Stat Oth 08/12/21 15:50 Ordered Departure - Departure Time of Disposition: 15:58 Disposition: Home, Self-Care 01 Condition: Good Clinical Impression: Right knee sprain - Discharge Information Referrals: Ritu Caruso MD [Primary Care Provider] - Forms: ED Department Discharge Additional Instructions: Rest ice elevate. Should be back to full use within 2 to 3 days or follow-up in the orthopedic clinic [facility] [address], [address] [place] [address] The following information is given to patients seen in the emergency department who are being discharged to home. This information is to outline your options for follow-up care. We provide all patients seen in our emergency department with a follow-up referral. The need for follow-up, as well as the timing and circumstances, are variable depending upon the specifics of your emergency department visit. If you don't have a primary care physician on staff, we will provide you with a referral. We always advise you to contact your personal physician following an emergency department visit to inform them of the circumstance of the visit and for follow-up with them and/or the need for any referrals to a consulting specialist. The emergency department will also refer you to a specialist when appropriate. This referral assures that you have the opportunity for follow-up care with a specialist. All of these measure are taken in an effort to provide you with optimal care, which includes your follow-up. Under all circumstances we always encourage you to contact your private physician who remains a resource for coordinating your care. When calling for follow-up care, please make the office aware that this follow-up is from your recent emergency room visit. If for any reason you are refused follow-up, please contact the [facility] Emergency Department at and asked to speak to the emergency department charge nurse. Sepsis Event Note (ED) - Focused Exam Vital Signs: Vital Signs Temp Pulse Resp BP Pulse Ox 08/12/21 14:42 36.8 C 68 17 117/72 100 - My Orders Last 24 Hours: My Active Orders 08/12/21 14:56 Knee 3V Rt [CR] Stat 08/12/21 15:50 DME for Discharge [COMM] Stat - Assessment/Plan Last 24 Hours: My Active Orders 08/12/21 14:56 Knee 3V Rt [CR] Stat 08/12/21 15:50 DME for Discharge [COMM] Stat
--- NOTE | 2021-08-12 16:14 | CR ---
INDICATION: Pain after injury. COMPARISON: None available. TECHNIQUE: The right knee was examined during weight-bearing with bilateral AP, lateral, and sunrise views for a total of three views. FINDINGS: There is no sign of fracture or dislocation. The medial and lateral compartments are normal in height. There is a mild suprapatellar joint effusion. No soft tissue abnormality is seen. The AP view of the left knee included on today study is unremarkable. IMPRESSION: No sign of acute osseous injury. Mild suprapatellar joint effusion. Dictated by Jimmy Bangura MD @ 08/12/2021 4:12:33 PM (Electronically Signed)
== END 2021-08-12 16:43 | disposition home or self-care (01) ==
LOC: MW.ED 14:08
DX: S83.91XA Sprain of unspecified site of right knee, initial encounter (principal); X50.1XXA Overexertion from prolonged static or awkward postures, initial encounter
CPT/HCPCS: 73562-26-RT; 73562-RT; 99283-25

== ENCOUNTER 2025-01-08 17:05 | Emergency (ER) | payer BC ==
[2025-01-08 18:29] LABS: BASOPHILS ABSOLUTE AUTO 0.03 K/uL (0.00-0.20); BASOPHILS PERCENT AUTO 0.4 % (0.0-1.0); EOSINOPHILS ABSOLUTE AUTO 0.08 K/uL (0.00-0.45); EOSINOPHILS PERCENT AUTO 1.1 % (0.0-6.0); HEMATOCRIT 38.5 % (37.0-47.0); HEMOGLOBIN 11.9 g/dL (12.0-16.0); IMMATURE GRAN ABSOLUTE AUTO 0.02 K/uL (0.00-0.05); IMMATURE GRAN PERCENT AUTO 0.3 % (0.0-0.4); LYMPHOCYTES ABSOLUTE AUTO 2.65 K/uL (1.00-4.80); MEAN CORPUSCULAR HEMOGLOBIN 22.1 pg (28.0-32.0); MEAN CORPUSCULAR HGB CONC 30.9 g/dL (32.0-36.0); MEAN CORPUSCULAR VOLUME 71.4 fL (83.0-99.0); MONOCYTES ABSOLUTE AUTO 0.51 K/uL (0.00-0.80); MONOCYTES PERCENT AUTO 7.3 % (0.0-8.0); NEUTROPHILS ABSOLUTE AUTO 3.68 K/uL (1.80-7.70); NEUTROPHILS PERCENT AUTO 52.9 % (41.0-71.0); PLATELET COUNT,PLT 265 K/uL (150-400); RED BLOOD CELL COUNT 5.39 M/uL (4.10-5.30); WHITE BLOOD CELL COUNT,WBC 6.97 K/uL (3.9-11.3)
[2025-01-08 19:07] LABS: A/G RATIO 1.1 (0.9-1.6); ALBUMIN 4.2 g/dL (3.4-5.0); BILIRUBIN TOTAL 1.1 mg/dL (0.2-1.0); CALCIUM 9.7 mg/dL (8.5-10.1); CREATININE 0.8 mg/dL (0.6-1.0); EST CRCL DRUG DOSING (CG) 87.99 mL/min; POTASSIUM,K 4.2 mmol/L (3.5-5.1); PROTEIN TOTAL,TP 8.1 g/dL (6.4-8.2)
[2025-01-08 19:13] LABS: PRO B-TYPE NATRIUR PEPT,BNPPRO 17 pg/mL (0-125)
== END 2025-01-08 19:50 | disposition home or self-care (01) ==
LOC: MW.ED 17:05
DX: R00.2 Palpitations (principal); R07.9 Chest pain, unspecified; Z75.8 Other problems related to medical facilities and other health care; Z88.8 Allergy status to other drugs, medicaments and biological substances; Z79.899 Other long term (current) drug therapy
CPT/HCPCS: 36415; 71046; 71046-26; 80053; 83690; 83735; 83880; 84484; 84703; 85025; 85379; 87428-QW; 93005; 99285